=== PATIENT | male | born 1955 | race Caucasian/White ===

== ENCOUNTER 2017-02-15 18:47 | Emergency (ER) | payer OTHER ==
[~2017-02-15] VITALS: Ht 182.9 cm; Wt 84.6 kg
[~2017-02-15 18:47] MED LIST: CIPRO500 MG PO; FLEXERIL10 MG PO; NAPROSYN500 MG PO; PREDNISONE20 MG PO; TRAMADOL HCL50 MG PO
[2017-02-15] MEDS ORDERED: PERCOCET 5/31 TABLET PO (21:50)
[2017-02-15] MEDS ORDERED: FLEXERIL10 MG PO (21:50)
[2017-02-15 22:30] VITALS: BP 134/73
== END 2017-02-15 22:31 | disposition home or self-care (01) ==
LOC: EME 18:47
DX: S39.012A Strain of muscle, fascia and tendon of lower back, initial encounter (principal); X50.0XXA Overexertion from strenuous movement or load, initial encounter; Y93.89 Activity, other specified; F17.200 Nicotine dependence, unspecified, uncomplicated
CPT/HCPCS: 99281; 99284; J1885

== ENCOUNTER 2017-02-24 21:53 | Emergency (ER) | payer OTHER ==
[~2017-02-24] VITALS: Ht 182.9 cm; Wt 86.2 kg
[~2017-02-24 21:53] MED LIST changes: +PERCOCET 5/31 TABLET PO
[2017-02-24 22:49] LABS: HEMATOCRIT 42.4 % (38.0-50.0); MCH 32.1 PG (29.0-34.0); MCHC 35.4 G/DL (30.0-36.0); MCV 90.6 FL (86-99); MEAN PLAT.VOLUME 9.9 uM^3 (9.0-12.4); PLATELET COUNT 253 K/uL (156-360); RBC DIS.WIDTH-CV 12.7 % (11.8-14.6); RED BLOOD COUNT 4.68 M/uL (4.00-5.50); WHITE BLOOD COUNT 8.2 K/uL (4.1-10.2)
[2017-02-24 22:55] LABS: ADD MIUA? NO; BILIRUBIN NEGATIVE; BLOOD NEGATIVE; COLOR YELLOW ((YELLOW)); GLUCOSE (STRIP) NEGATIVE; KETONES NEGATIVE; LEUKOCYTES NEGATIVE; NITRITE NEGATIVE; PROTEIN (STRIP) NEGATIVE; SPECIFIC GRAVITY 1.014 (1.000-1.030); UCUL ADDED? NO; UROBILINOGEN 0.2 MG/DL (0.2-1.0)
[2017-02-24 23:01] LABS: CHLORIDE 106 mEq/L (99-109); SODIUM 139 mEq/L (136-147)
[2017-02-24 23:03] LABS: GLUCOSE 111 mg/dL (70-99)
[2017-02-24 23:04] LABS: ANION GAP 9 MEQ/L (2-14)
[2017-02-24 23:07] LABS: GFR ESTIMATE (CALCULATED) > 59 mL/min/ (58.99-99999)
[2017-02-24 23:08] LABS: UREA NITROGEN (BUN) 16 mg/dL (9-23)
[2017-02-24] MEDS ORDERED: FLOMAX0.4 MG PO (23:17)
[2017-02-24 23:31] VITALS: BP 134/67
== END 2017-02-25 | disposition home or self-care (01) ==
LOC: EME 21:53
PROVIDERS: Physician Assistant
DX: R33.9 Retention of urine, unspecified (principal); R39.15 Urgency of urination; R10.9 Unspecified abdominal pain; F17.200 Nicotine dependence, unspecified, uncomplicated; M54.5 Low back pain; Z79.891 Long term (current) use of opiate analgesic
CPT/HCPCS: 80048; 81003; 85027; 99281; 99284

== ENCOUNTER 2017-02-27 19:21 | Emergency (ER) | payer OTHER ==
[~2017-02-27] VITALS: Ht 182.9 cm; Wt 84.7 kg
[~2017-02-27 19:21] MED LIST changes: +FLOMAX0.4 MG PO
[2017-02-27 20:42] VITALS: BP 123/86
== END 2017-02-27 20:43 | disposition home or self-care (01) ==
LOC: EXP 19:21 → EME 19:21 → EXP 20:43
DX: Z46.6 Encounter for fitting and adjustment of urinary device (principal); F17.200 Nicotine dependence, unspecified, uncomplicated
CPT/HCPCS: 99281; 99283

== ENCOUNTER 2017-09-20 17:24 | Emergency (ER) | payer BC ==
[~2017-09-20] VITALS: Ht 182.9 cm; Wt 80.7 kg
[2017-09-20 19:30] LABS: HEMATOCRIT 43.9 % (38.0-50.0); HEMOGLOBIN 15.5 G/DL (12.5-16.6); MCH 32.1 PG (29.0-34.0); MCHC 35.3 G/DL (30.0-36.0); MCV 90.9 FL (86-99); PLATELET COUNT 269 K/uL (156-360); RBC DIS.WIDTH-CV 12.8 % (11.8-14.6); RED BLOOD COUNT 4.83 M/uL (4.00-5.50); WHITE BLOOD COUNT 8.9 K/uL (4.1-10.2)
[2017-09-20 19:42] LABS: INTER. NORMALIZED RATIO 0.9
[2017-09-20 19:50] LABS: APPEARANCE CLEAR ((CLEAR)); BILIRUBIN NEGATIVE; BLOOD NEGATIVE; COLOR STRAW ((YELLOW)); GLUCOSE (STRIP) NEGATIVE; KETONES NEGATIVE; LEUKOCYTES NEGATIVE; NITRITE NEGATIVE; PROTEIN (STRIP) NEGATIVE; SPECIFIC GRAVITY 1.009 (1.000-1.030); UROBILINOGEN 0.2 MG/DL (0.2-1.0)
[2017-09-20 19:52] LABS: TROP-I INTERPRETATION NEGATIVE; TROPONIN-I 0.01 ng/mL (0.0-0.30)
[2017-09-20 20:27] LABS: AMPHETAMINE NEGATIVE (500 ng/mL); BARBITURATES NEGATIVE (200 ng/mL); BENZODIAZEPINES NEGATIVE (150 ng/mL); BUPRENORPHINE NEGATIVE (10 ng/mL); COCAINE NEGATIVE (150 ng/mL); METHADONE NEGATIVE (200 ng/mL); METHAMPHETAMINE NEGATIVE (500 ng/mL); OPIATES (MORPHINE) NEGATIVE (100 ng/mL); OXYCODONE NEGATIVE (100 ng/mL); PHENCYCLIDINE NEGATIVE (25 ng/mL); PROPOXYPHENE NEGATIVE (300 ng/mL); THC CANNABINOIDS NEGATIVE (50 ng/mL); TRICYCLIC ANTIDEPRESSANTS NEGATIVE (300 ng/mL)
[2017-09-20 22:11] LABS: MAGNESIUM 2.1 mg/dl (1.3-2.7)
[2017-09-20 22:17] LABS: SERUM ETHYL ALCOHOL < 10 mg/dL
[2017-09-20 22:21] LABS: ALBUMIN 4.5 G/DL (3.2-4.8); ALKALINE PHOSPHATASE 104 IU/L (3-129); ALT (GPT) 12 IU/L (3-49); AST (GOT) 17 IU/L (2-34); CHLORIDE 108 MEQ/L (99-109); CREATININE 0.9 MG/DL (0.6-1.3); GFR ESTIMATE (CALCULATED) > 59 mL/min/ (58.99-99999); GLUCOSE 95 mg/dL (70-99); POTASSIUM 4.4 MEQ/L (3.7-5.4); SODIUM 142 MEQ/L (136-147); TOTAL BILIRUBIN 0.5 MG/DL (0.0-1.0); TOTAL PROTEIN 6.8 G/DL (6.4-8.3); UREA NITROGEN (BUN) 12 mg/dL (9-23)
[2017-09-20 23:11] VITALS: BP 127/86
== END 2017-09-20 23:14 | disposition home or self-care (01) ==
LOC: EME 17:24
PROVIDERS: Emergency Medicine
DX: R00.2 Palpitations (principal); F17.200 Nicotine dependence, unspecified, uncomplicated; Z98.890 Other specified postprocedural states
CPT/HCPCS: 71045; 80053; 81003; 83735; 84443; 84484; 85027; 85610; 85730; 86850; 86900; 86901; 93005; 99281; 99285; G0480

== ENCOUNTER 2017-10-26 00:18 | Emergency (ER) | payer BC ==
[~2017-10-26] VITALS: Ht 182.9 cm; Wt 82.8 kg
[2017-10-26 01:27] LABS: BASOPHIL (%) 0.8 % (0-1); BASOPHIL COUNT 0.1 K/uL (0-0.1); EOSINOPHIL COUNT 0.2 K/uL (0-0.3); HEMATOCRIT 43.2 % (38.0-50.0); HEMOGLOBIN 15.2 G/DL (12.5-16.6); IMMATURE GRANULOCYTE (%) 0.3 % (0.0-0.7); LYMPHOCYTE (%) 20.2 % (15-42); LYMPHOCYTE COUNT 2.3 K/uL (1.0-2.8); MCH 32.3 PG (29.0-34.0); MCHC 35.2 G/DL (30.0-36.0); MCV 91.7 FL (86-99); MONOCYTE (%) 7.9 % (3-12); MONOCYTE COUNT 0.9 K/uL (0-0.8); NEUTROPHIL (%) 68.8 % (45-76); NEUTROPHIL COUNT 7.9 K/uL (1.8-6.4); PLATELET COUNT 270 K/uL (156-360); RBC DIS.WIDTH-CV 13.2 % (11.8-14.6); RBC DIS.WIDTH-SD 45.1 % (39-53); RED BLOOD COUNT 4.71 M/uL (4.00-5.50); WHITE BLOOD COUNT 11.5 K/uL (4.1-10.2)
[2017-10-26 01:36] LABS: CHLORIDE 106 mEq/L (99-109); POTASSIUM 4.1 mEq/L (3.7-5.4); SODIUM 142 mEq/L (136-147)
[2017-10-26 01:38] LABS: GLUCOSE 106 mg/dL (70-99)
[2017-10-26 01:42] LABS: CREATININE 1.2 mg/dL (0.6-1.3); GFR ESTIMATE (CALCULATED) > 59 mL/min/ (58.99-99999)
[2017-10-26 01:43] LABS: UREA NITROGEN (BUN) 10 mg/dL (9-23)
[2017-10-26] MEDS ORDERED: AUGMENTIN875 MG PO (04:48)
[2017-10-26] MEDS ORDERED: NORCO 5/3251 TABLET PO (04:48)
[2017-10-26] MEDS ORDERED: MOTRIN600 MG PO (04:48)
[2017-10-26 05:44] VITALS: BP 125/64
== END 2017-10-26 05:46 | disposition home or self-care (01) ==
LOC: EME 00:18
PROVIDERS: Physician Assistant
DX: J02.9 Acute pharyngitis, unspecified (principal); R68.83 Chills (without fever); F17.200 Nicotine dependence, unspecified, uncomplicated
CPT/HCPCS: 80048; 83605; 85025; 87040; 87651 90; 99281; 99284; J0696; J1100; J1885; J7030